=== PATIENT | female | born 1950 | race Caucasian/White ===

== ENCOUNTER → 2019-10-03 17:12 | Outpatient (CLI) | payer MEDICARE, SELFPAY ==
[2019-10-03 18:07] LABS: Basophils % 0.5 % (0.1-2.0); Eosinophils # 0.3 K/mm3 (0.0-0.4); Eosinophils % 3.5 % (0.1-12.0); Hematocrit 39.7 % (37.0-47.0); Hemoglobin 13.4 g/dL (12.2-16.2); Lymphocytes # 2.5 K/mm3 (0.7-4.5); Lymphocytes % 30.4 % (10-50); Mean Corpuscular HGB Conc 33.8 g/dL (31.8-35.4); Mean Corpuscular Hemoglobin 33.7 pg (27.0-31.2); Mean Corpuscular Volume 99.7 fl (81-99); Mean Platelet Volume 8.8 fl (7.4-10.4); Monocytes # 0.4 K/mm3 (0.1-1.0); Monocytes % 4.4 % (1.7-9.3); Neutrophils % 61.1 % (37.0-80.0); Platelet Count 270 K/mm3 (142-424); Red Blood Count 3.98 M/mm3 (4.20-5.40); Red Cell Distribution Width 12.8 % (11.5-17.5); White Blood Count 8.1 K/mm3 (4.8-10.8)
[2019-10-03 18:44] LABS: Chloride 103 mmol/L (98-107); Potassium 4.2 mmoL/L (3.5-5.1); Sodium 136 mmol/L (136-145)
[2019-10-03 18:47] LABS: Alanine Aminotransferase 14 U/L (12-78); Albumin Level 3.8 g/dl (3.5-5.0); Albumin/Globulin Ratio 1.4 (1.1-1.8); Alkaline Phosphatase 120 U/L (38-126); Anion Gap 8.2 mEq/L (5-15); Aspartate Amino Transferase 30 U/L (14-36); Bilirubin,Total 0.5 mg/dl (0.2-1.3); Blood Urea Nitrogen 25 mg/dl (7-17); Calcium 9.5 mg/dl (8.4-10.2); Carbon Dioxide 29 mmol/L (22.0-30.0); Estimated Glomerular Filt Rate 62 ml/min (>60); GFR (African American) 76 ML/MIN (>60); Globulin 2.7 g/dL (1.3-3.2); Glucose 73 mg/dl (74-100); Total Protein,Serum 6.5 g/dl (6.3-8.2)
[2019-10-03 19:06] LABS: T4 (Thyroxine) 7.8 ug/dl (5.53-11.0)
== END ==
PROVIDERS: Visit Provider Family Medicine
DX: R53.83 Other fatigue (principal)
CPT/HCPCS: 80053; 84436; 84443; 85025

== ENCOUNTER → 2020-04-30 19:27 | Outpatient (CLI) | payer MEDICARE, SELFPAY ==
[2020-04-30 19:50] LABS: Basophils # 0.1 K/mm3 (0-0.2); Basophils % 0.6 % (0.1-2.0); Eosinophils # 0.4 K/mm3 (0.0-0.4); Eosinophils % 4.6 % (0.1-12.0); Hematocrit 44.8 % (37.0-47.0); Hemoglobin 14.2 g/dL (12.2-16.2); Lymphocytes # 2.6 K/mm3 (0.7-4.5); Lymphocytes % 27.2 % (10-50); Mean Corpuscular HGB Conc 31.6 g/dL (31.8-35.4); Mean Corpuscular Hemoglobin 31.4 pg (27.0-31.2); Mean Corpuscular Volume 99.2 fl (81-99); Mean Platelet Volume 9.6 fl (7.4-10.4); Monocytes # 0.4 K/mm3 (0.1-1.0); Monocytes % 4.5 % (1.7-9.3); Neutrophils # 6.1 K/mm3 (1.8-7.8); Neutrophils % 63.1 % (37.0-80.0); Platelet Count 216 K/mm3 (142-424); Red Blood Count 4.52 M/mm3 (4.20-5.40); Red Cell Distribution Width 13.4 % (11.5-17.5); White Blood Count 9.6 K/mm3 (4.8-10.8)
[2020-04-30 20:00] LABS: Alanine Aminotransferase 16 U/L (12-78); Albumin Level 4.2 g/dl (3.5-5.0); Albumin/Globulin Ratio 1.6 (1.1-1.8); Alkaline Phosphatase 117 U/L (38-126); Anion Gap 11.7 mEq/L (5-15); Aspartate Amino Transferase 28 U/L (14-36); Bilirubin,Total 0.4 mg/dl (0.2-1.3); Blood Urea Nitrogen 25 mg/dl (7-17); Calcium 10.1 mg/dl (8.4-10.2); Carbon Dioxide 28 mmol/L (22.0-30.0); Chloride 101 mmol/L (98-107); Chol/HDL Ratio 4.1 (1-3.5); Cholesterol 182 mg/dl (140-200); Estimated Glomerular Filt Rate 62 ml/min (>60); GFR (African American) 76 ML/MIN (>60); Globulin 2.7 g/dL (1.3-3.2); Glucose 91 mg/dl (74-100); HDL Cholesterol 44 mg/dl (40-60); Potassium 4.7 mmoL/L (3.5-5.1); Sodium 136 mmol/L (136-145); Total Protein,Serum 6.9 g/dl (6.3-8.2); Triglycerides 180 mg/dl (30-150); VLDL Cholesterol 36 mg/dL (0-40)
[2020-04-30 20:10] LABS: Direct LDL Cholesterol 99.79 mg/dL (100-129)
[2020-04-30 20:17] LABS: 25-OH Vitamin D, Total 53.5 ng/mL (30-100)
[2020-04-30 20:19] LABS: T4 (Thyroxine) 9.9 ug/dl (5.53-11.0)
[2020-04-30 20:32] LABS: Thyroid Stimulating Hormone 1.08 uIU/mL (0.465-4.68)
== END ==
PROVIDERS: Visit Provider Family Medicine
DX: E03.9 Hypothyroidism, unspecified (principal); E55.9 Vitamin D deficiency, unspecified; I10 Essential (primary) hypertension
CPT/HCPCS: 80053; 80061; 82306; 84436; 84443; 85025

== ENCOUNTER → 2021-01-03 17:08 | Outpatient (CLI) | payer MEDICARE, SELFPAY ==
[2021-01-03 20:24] LABS: Thyroid Stimulating Hormone 0.79 uIU/mL (0.465-4.68)
== END ==
PROVIDERS: Visit Provider Family Medicine
DX: E03.9 Hypothyroidism, unspecified (principal)
CPT/HCPCS: 84443

== ENCOUNTER → 2022-01-27 15:39 | Outpatient (CLI) | payer MEDICARE, SELFPAY ==
--- NOTE | 2022-01-27 15:42 | XR_ITS ---
PROCEDURE INFORMATION: Exam: XR Lumbosacral Spine Exam date and time: 01/27/2022 3:49 PM Age: 71 years old Clinical indication: Low back pain TECHNIQUE: Imaging protocol: Radiologic exam of the lumbosacral spine. Views: 2 or 3 views. AP, lateral and spot lumbosacral views COMPARISON: No relevant prior studies available. FINDINGS: Bones/joints: Severe levocurvature of the lumbar spine. No obvious compression deformity or fracture however study is limited by severe scoliosis. Sacrum appears unremarkable. Soft tissues: Unremarkable. Vasculature: There are numerous benign phleboliths in the pelvis. Atherosclerotic changes of the aorta and branch vessels. IMPRESSION: No obvious compression deformity or fracture however study is limited by severe scoliosis.
--- NOTE | 2022-01-27 15:42 | XR_ITS ---
PROCEDURE INFORMATION: Exam: XR Cervical Spine Exam date and time: 01/27/2022 3:49 PM Age: 71 years old Clinical indication: Neck pain TECHNIQUE: Imaging protocol: Radiologic exam of the cervical spine. Views: 4 or 5 views. AP, lateral, odontoid views of the neck as well as lateral flexion and extension views of the neck were obtained. COMPARISON: No relevant prior studies available. FINDINGS: Bones/joints: The odontoid process appears intact. Lateral masses of C1 are normally aligned with C2. Chronic appearing contour abnormality involving the C5 and C6 vertebrae with fusion of the disc space and inferior and superior articular abnormalities. On image obtained in neutral position there is 1.5 mm anterolisthesis of C3 on C4 as well as 3 mm anterolisthesis of C4 on C5. On image obtained in flexion, there is 3.5 mm anterolisthesis of C2 on C3, 3 mm posterior listhesis of C3 on C4, 4 mm anterolisthesis C4 on C5. On image obtained in extension there is 2 mm anterolisthesis C3 on C4, 3 mm anterolisthesis C3 on C4, alignment below C6 not well evaluated. Chronic appearing deformity of the anterior aspect of the C4 vertebral body. Severe loss of disc height at C3-C4 with extensive discogenic endplate changes. Multilevel discogenic endplate changes are also present, multilevel facet and uncovertebral hypertrophy left greater than right. No acute fracture evident. Soft tissues: Prevertebral soft tissues appear unremarkable. Vasculature: The aorta demonstrates mild atherosclerotic calcification. Vascular calcifications left neck. 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
== END ==
PROVIDERS: PCP Family Medicine; Visit Provider Family Medicine
DX: M54.9 Dorsalgia, unspecified (principal); M54.2 Cervicalgia; M54.50 Low back pain, unspecified
CPT/HCPCS: 72052; 72100

== ENCOUNTER → 2022-06-19 22:42 | Outpatient (CLI) | payer MEDICARE, SELFPAY ==
[2022-06-19 18:35] LABS: Basophils # 0.1 K/mm3 (0-0.2); Basophils % 0.6 % (0.1-2.0); Eosinophils # 0.2 K/mm3 (0.0-0.4); Eosinophils % 2.1 % (0.1-12.0); Hematocrit 41.1 % (37.0-47.0); Hemoglobin 13.6 g/dL (12.2-16.2); Lymphocytes # 2.8 K/mm3 (0.7-4.5); Lymphocytes % 25.6 % (10-50); Mean Corpuscular Hemoglobin 31.8 pg (27.0-31.2); Mean Corpuscular Volume 96.1 fl (81-99); Mean Platelet Volume 8.6 fl (7.4-10.4); Monocytes # 0.6 K/mm3 (0.1-1.0); Monocytes % 5.2 % (1.7-9.3); Neutrophils # 7.2 K/mm3 (1.8-7.8); Neutrophils % 66.5 % (37.0-80.0); Platelet Count 424 K/mm3 (142-424); Red Blood Count 4.27 M/mm3 (4.20-5.40); White Blood Count 10.8 K/mm3 (4.8-10.8)
[2022-06-19 18:49] LABS: Anion Gap 11.5 mEq/L (5-15); Blood Urea Nitrogen 30 mg/dl (7-17); Calcium 9.6 mg/dl (8.4-10.2); Carbon Dioxide 28 mmol/L (22.0-30.0); Chloride 101 mmol/L (98-107); Estimated Glomerular Filt Rate 62 ml/min (>60); GFR (African American) 75 ML/MIN (>60); Glucose 91 mg/dl (74-100); Potassium 5.5 mmoL/L (3.5-5.1); Sodium 135 mmol/L (136-145)
[2022-06-19 19:18] LABS: Thyroid Stimulating Hormone 5.81 uIU/mL (0.465-4.68)
[2022-06-19 21:11] LABS: Iron 63 ug/dL (37-170)
== END ==
PROVIDERS: PCP Family Medicine; Visit Provider Family Medicine
DX: M25.571 Pain in right ankle and joints of right foot (principal); E03.9 Hypothyroidism, unspecified; M25.572 Pain in left ankle and joints of left foot; M54.2 Cervicalgia; M54.9 Dorsalgia, unspecified; M41.9 Scoliosis, unspecified
CPT/HCPCS: 80048; 83540; 84443; 85025

== ENCOUNTER → 2023-03-22 07:10 | Outpatient (CLI) | payer MEDICARE, SELFPAY ==
[2023-03-22 19:42] LABS: Amphetamine/Metha Screen,Urine Negative ng/ml (<1000)
[2023-03-22 19:44] LABS: Barbiturates Screen,Urine Negative ng/ml (<200); Cannabinoid Screen,Urine Negative ng/ml (<50)
[2023-03-22 19:45] LABS: Benzodiazepines Screen,Urine Negative ng/ml (<200)
[2023-03-22 19:46] LABS: Cocaine Screen,Urine Negative ng/ml (<300); Opiate Screen,Urine Positive ng/ml (<300)
[2023-03-22 19:47] LABS: Methadone Screen,Urine Negative ng/ml (<300)
[2023-03-22 19:48] LABS: Phencyclidine Screen,Urine Negative ng/ml (<25)
== END ==
PROVIDERS: PCP Family Medicine; Visit Provider Family Medicine
DX: Z79.899 Other long term (current) drug therapy (principal)
CPT/HCPCS: 80305

== ENCOUNTER 2023-10-13 15:15 | Outpatient (CLI) | payer MEDICARE, SELFPAY ==
[2023-10-13 16:19] LABS: Basophils # 0.1 K/mm3 (0-0.2); Eosinophils # 0.3 K/mm3 (0.0-0.4); Eosinophils % 4.4 % (0.1-12.0); Hemoglobin 12.5 g/dL (12.2-16.2); Lymphocytes # 2.1 K/mm3 (0.7-4.5); Lymphocytes % 27.5 % (10-50); Mean Corpuscular HGB Conc 32.1 g/dL (31.8-35.4); Mean Corpuscular Hemoglobin 33.1 pg (27.0-31.2); Mean Platelet Volume 8.1 fl (7.4-10.4); Monocytes # 0.4 K/mm3 (0.1-1.0); Monocytes % 4.8 % (1.7-9.3); Neutrophils # 4.7 K/mm3 (1.8-7.8); Neutrophils % 62.3 % (37.0-80.0); Platelet Count 339 K/mm3 (142-424); Red Blood Count 3.79 M/mm3 (4.20-5.40); Red Cell Distribution Width 13.7 % (11.5-17.5); White Blood Count 7.5 K/mm3 (4.8-10.8)
[2023-10-13 16:31] LABS: Alanine Aminotransferase 22 U/L (12-78); Albumin Level 3.8 g/dl (3.5-5.0); Alkaline Phosphatase 136 U/L (38-126); Aspartate Amino Transferase 33 U/L (14-36); Bilirubin,Indirect 0.4 mg/dL (0.0-0.9); Bilirubin,Total 0.4 mg/dl (0.2-1.3); Bilirubin,Unconjugated 0.5 mg/dL (0.0-1.1); Blood Urea Nitrogen 34 mg/dl (7-17); Calcium 9.6 mg/dl (8.4-10.2); Carbon Dioxide 26 mmol/L (22.0-30.0); Chloride 106 mmol/L (98-107); Chol/HDL Ratio 3.1 (1-3.5); Cholesterol 161 mg/dl (140-200); Estimated Glomerular Filt Rate 34 ml/min (>60); GFR (African American) 41 ML/MIN (>60); Glucose 82 mg/dl (74-100); HDL Cholesterol 52 mg/dl (40-60); Sodium 137 mmol/L (136-145); Total Protein,Serum 6.1 g/dl (6.3-8.2); Triglycerides 78 mg/dl (30-150); VLDL Cholesterol 16 mg/dL (0-40)
[2023-10-13 16:42] LABS: Direct LDL Cholesterol 73.55 mg/dL (100-129)
[2023-10-13 16:49] LABS: Free T4 (Free Thyroxine) 1.49 ng/dl (0.78-2.19)
[2023-10-13 17:02] LABS: Thyroid Stimulating Hormone 9.03 uIU/mL (0.465-4.68)
== END 2023-10-13 23:59 | disposition home or self-care (01) ==
LOC: LAB 15:16
PROVIDERS: PCP Family Medicine; Visit Provider Nurse Practitioner
DX: R00.2 Palpitations (principal); R07.9 Chest pain, unspecified; Z72.0 Tobacco use; R06.02 Shortness of breath; E78.5 Hyperlipidemia, unspecified
CPT/HCPCS: 36415; 80048; 80061; 80076; 84439; 84443; 85025

== ENCOUNTER 2023-10-26 14:22 | Outpatient (CLI) | payer MEDICARE, SELFPAY ==
--- NOTE | 2023-10-26 14:26 | CA_ITS ---
APPROVED REPORT EXAM: Comprehensive 2D, Doppler, and color-flow Echocardiogram Industry Consultant: Sydney Camacho, TESSIE, RVS Ht: 4 ft 10 in Wt: 72lbs BSA: 1.18 BP: 115/72 mmHg Indications: Dyspnea, Abn EKG, CP, COPD, Smoker 2D Dimensions Aortic Root 3.26 cm F: 2.7 - 3.3 LA Volume 26.60 mL Left Atrium 2.84 cm F: 2.7 - 3.8 LA Volume Index 22.54 mL/m2 (M/F) 16-34 RVID Base (AP4) 2.59 cm (M/F) 2.5-4.1 EF AP4 58.80 % LVOT 2.02 cm (M/F) 1.5-2.5 GL Strain -17.0 % M-Mode Dimensions RVDd 1.86 cm (0.9-2.6) LVDd 3.55 cm (3.5-5.7) Ao Diam 3.35 cm (2.0-3.7) LVDs 1.92 cm (3.5-5.7) IVSd 0.64 cm (0.6-1.1) PWd 0.84 cm (0.6-1.1) EF (Teich) 78.10% EPSs 0.20 cm FS 45.90% EDV (Teich) 52.60 mL TAPSE 1.13 (<1.7) ESV (Teich) 11.50 mL LV Diastology E Decel Time 208 (160-240 msec) E/A Ratio 2.6 MED E' 5.7 (>= 7 cm/sec) MED A' 8.20 cm/s E'/MED E' Ratio 10.14 (<= 14) LAT E' 12.1 (>= 10 cm/sec) LAT A' 6.80 cm/s E/LAT E' Ratio 4.78 (<= 14) Aortic Valve LVOT Max 59.0 (70-110 cm/s) ANISH Index 1.69 cm2/m2 LVOT VTI 11.49 cm AoV Peak Paolo. 92.0 (50-130 cm/s) AI PHT 241.00 ms AO Mean GR. 1.80 (<5 mmHg) AO VTI 17.6 (18-25 cm) ANISH (VTI) 2.09 (2.5-4.5 cm2) Mitral Valve MV E Max Paolo. 58.0 (40-130 cm/s) MV A Velocity 22.0 (40-130 cm/s) E/A Ratio 2.63 MV Decel. Time 208 (160-240 ms) Tricuspid Valve TR P. Velocity 249.00 cm/s RAP Estimate 10.00 mmHg RVSP 34.80 mmHg Left Ventricle The left ventricle is normal size. The left ventricular systolic function is normal. The left ventricular ejection fraction is within the normal range. There is increased LV wall thickness. There is normal LV segmental wall motion. Diastolic function is indeterminate. LVEF is 55%. Right Ventricle Right ventricle is mildly dilated. Right ventricle is mildly hypokinetic. Atria Left atrium is mildly dilated. Right atrium is mildly dilated. There is no Doppler evidence of interatrial shunt. Aortic Valve The aortic valve is mildly thickened. There is no aortic valvular stenosis. Mild aortic regurgitation. Mitral Valve The mitral valve leaflets are mildly thickened. No evidence of mitral valve stenosis. Mild mitral regurgitation. Tricuspid Valve The tricuspid valve leaflets are thin and pliable. Mild tricuspid regurgitation. RVSP is 25-30 mmHg. Pulmonic Valve The pulmonary valve is normal in structure. Mild pulmonic regurgitation. Great Vessels The aortic root is normal in size. The ascending aorta is not well-visualized. IVC is normal in size and collapses >50% with inspiration. Pericardium There is no pericardial effusion. Other Information Study Quality: Fair Conclusion Normal LV systolic function. Mild RV dilation with mild reduction in RV function. Mild LA dilation. Mild AI, mild MR, mild TR, mild PI. RVSP is 25-30 mmHg. Electronically signed by : Yee Garcia MD 10/26/2023 23:43:19
== END 2023-10-26 23:59 | disposition home or self-care (01) ==
LOC: RT 14:23
PROVIDERS: PCP Family Medicine; Visit Provider Nurse Practitioner
DX: R06.02 Shortness of breath (principal); R94.31 Abnormal electrocardiogram [ECG] [EKG]; I51.7 Cardiomegaly
CPT/HCPCS: 93306

== ENCOUNTER 2023-11-11 14:51 | Outpatient (CLI) | payer MEDICARE, SELFPAY ==
[2023-11-11 15:26] LABS: Chloride 106 mmol/L (98-107); Sodium 139 mmol/L (136-145)
[2023-11-11 15:27] LABS: Potassium 4.6 mmoL/L (3.5-5.1)
[2023-11-11 15:30] LABS: Anion Gap 8.6 mEq/L (5-15); Blood Urea Nitrogen 25 mg/dl (7-17); Calcium 9.2 mg/dl (8.4-10.2); Carbon Dioxide 29 mmol/L (22.0-30.0); Estimated Glomerular Filt Rate 55 ml/min (>60); GFR (African American) 66 ML/MIN (>60); Glucose 82 mg/dl (74-100)
== END 2023-11-11 23:59 | disposition home or self-care (01) ==
LOC: LAB 14:52
PROVIDERS: PCP Family Medicine; Visit Provider Nurse Practitioner
DX: K21.9 Gastro-esophageal reflux disease without esophagitis (principal)
CPT/HCPCS: 36415; 80048

== ENCOUNTER 2024-08-21 16:57 | Outpatient (CLI) | payer MEDICARE, SELFPAY ==
[2024-08-21 18:55] LABS: Basophils # 0.1 K/mm3 (0-0.2); Basophils % 0.8 % (0.1-2.0); Eosinophils # 0.3 Kmm3 (0.0-0.4); Eosinophils % 3.6 % (0.1-12.0); Hematocrit 37.6 % (37.0-47.0); Immature Granulocytes # 0.02 10^3uL; Immature Granulocytes % 0.2 %; Lymphocytes # 2.4 K/mm3 (0.7-4.5); Lymphocytes % 27.2 % (10-50); Mean Corpuscular HGB Conc 31.9 g/dL (31.8-35.4); Mean Corpuscular Hemoglobin 30.4 pg (27.0-31.2); Mean Corpuscular Volume 95.2 fl (81-99); Mean Platelet Volume 9.8 fl (7.4-10.4); Monocytes # 0.7 K/mm3 (0.1-1.0); Monocytes % 8.4 % (1.7-9.3); Neutrophils # 5.3 K/mm3 (1.8-7.8); Neutrophils % 59.8 % (37.0-80.0); Nucleated Red Blood Cells # 0 10^3/uL; Nucleated Red Blood Cells % 0 %; Platelet Count 467 K/mm3 (142-424); Red Blood Count 3.95 M/mm3 (4.20-5.40); Red Cell Distribution Width 14.4 % (11.5-17.5); Red Cell Distribution Width-SD 50.1 fL; White Blood Count 8.8 K/mm3 (4.8-10.8)
[2024-08-21 20:39] LABS: Albumin Level 3.7 g/dl (3.5-5.0); Chloride 104 mmol/L (98-107); Potassium 5.2 mmoL/L (3.5-5.1); Sodium 137 mmol/L (136-145)
[2024-08-21 20:41] LABS: Blood Urea Nitrogen 37 mg/dl (7-17); Estimated Glomerular Filt Rate 40 ml/min (>60); GFR (African American) 49 ML/MIN (>60)
[2024-08-21 20:42] LABS: Alanine Aminotransferase 16 U/L (12-78); Albumin/Globulin Ratio 1.5 (1.1-1.8); Alkaline Phosphatase 113 U/L (38-126); Anion Gap 11.2 mEq/L (5-15); Aspartate Amino Transferase 24 U/L (14-36); Bilirubin,Total 0.2 mg/dl (0.2-1.3); Calcium 9.3 mg/dl (8.4-10.2); Carbon Dioxide 27 mmol/L (22.0-30.0); Globulin 2.4 g/dL (1.3-3.2); Glucose 53 mg/dl (74-100); Iron 42 ug/dL (37-170); Total Protein,Serum 6.1 g/dl (6.3-8.2)
[2024-08-21 20:57] LABS: T4 (Thyroxine) 8.4 ug/dl (5.53-11.0)
[2024-08-21 21:10] LABS: Thyroid Stimulating Hormone 2.83 uIU/mL (0.465-4.68)
[2024-08-21 21:12] LABS: Total Iron Binding Capacity 281 ug/dL (265-497)
== END 2024-08-21 23:59 | disposition home or self-care (01) ==
LOC: LAB.DROPOF 21:50
PROVIDERS: PCP Family Medicine; Visit Provider Family Medicine
DX: J43.9 Emphysema, unspecified (principal); I10 Essential (primary) hypertension
CPT/HCPCS: 80053; 83540; 83550; 84436; 84443; 85025